=== PATIENT | male | born 1965 | race Caucasian/White ===

== ENCOUNTER 2024-08-13 14:13 | Emergency (ER) | payer OTHER ==
[2024-08-13] MEDS ORDERED: methylPREDNISolone Sod Succ/PF 125 MG/2 ML VIAL ONE (14:49)
[2024-08-13 15:09] LABS: #Basophils Less than 0.03 10x3/uL (0.0-0.2); #Eosinophils 0.43 10x3/uL (0.0-0.5); #Monocytes 0.58 10x3/uL (0.0-1.1); #Neutrophils 1.92 10x3/uL (1.5-8.4); %Basophils 0.5 % (0.0-2.0); %Eosinophils 11.5 % (0.0-6.0); %Lymphocytes 21.3 % (18.0-47.0); %Monocytes 15.5 % (0.0-10.0); %Neutrophils 51.2 % (40.0-75.0); Hematocrit 44.7 % (38.8-50.0); Hemoglobin 14.5 g/dL (13.5-17.5); Mean Corpuscular HGB CONC 32.4 g/dL (32.0-36.0); Mean Corpuscular Hemoglobin 30.1 pg (27.0-33.0); Mean Corpuscular Volume 92.9 fL (81.2-95.1); Mean Platelet Volume 10.8 fL (7.4-10.4); Platelet Count 237 10x3/uL (150-450); RBC Distribution Width 12.2 % (11.5-14.5); Red Blood Cell (RBC) Count 4.81 10x6/uL (4.32-5.72); White Blood Cell (WBC) Count 3.75 10x3/uL (3.5-10.5)
[2024-08-13 15:18] LABS: Anion Gap 13 mmol/L (10-20); BUN (Urea Nitrogen) 18 mg/dL (8.4-25.7); Calc. Creatinine Clearance 0 mL/min (70-130); Calcium 8.7 mg/dL (7.8-10.44); Carbon Dioxide 23 mmol/L (22-29); Chloride 109 mmol/L (98-107); Estimated GFR 77; Glucose 97 mg/dL (70-105); Potassium 4.1 mmol/L (3.5-5.1); Sodium 141 mmol/L (136-145)
[2024-08-13 15:23] LABS: Troponin I Less than 0.010 ng/mL (< 0.028)
[2024-08-13] MEDS ORDERED: Ipratropium/Albuterol 3 ML NEB ONE ×2 (15:49→16:49)
== END 2024-08-13 17:28 | disposition home or self-care (01) ==
LOC: CSHERS 14:13
DX: J20.9 Acute bronchitis, unspecified (principal); I10 Essential (primary) hypertension
CPT/HCPCS: 71045; 80048; 83880; 84484; 85025; 87428; 93005; 96374; J2919; J7620

== ENCOUNTER 2024-09-02 17:00 | Emergency (ER) | payer OTHER ==
[2024-09-02] MEDS ORDERED: Acetaminophen 500 MG TAB ONE (19:11)
[2024-09-02] MEDS ORDERED: predniSONE 20 MG TAB ONE (19:11)
[2024-09-02] MEDS ORDERED: Ipratropium/Albuterol 3 ML NEB ONE (19:24)
[2024-09-02 19:40] LABS: #Basophils 0.03 10x3/uL (0.0-0.2); #Eosinophils 0.25 10x3/uL (0.0-0.5); #Neutrophils 8.96 10x3/uL (1.5-8.4); %Basophils 0.2 % (0.0-2.0); %Eosinophils 2.1 % (0.0-6.0); %Lymphocytes 12.7 % (18.0-47.0); %Neutrophils 74.6 % (40.0-75.0); Hematocrit 42.5 % (38.8-50.0); Hemoglobin 14.1 g/dL (13.5-17.5); Mean Corpuscular HGB CONC 33.2 g/dL (32.0-36.0); Mean Corpuscular Hemoglobin 29.7 pg (27.0-33.0); Mean Corpuscular Volume 89.5 fL (81.2-95.1); Mean Platelet Volume 10.8 fL (7.4-10.4); Platelet Count 311 10x3/uL (150-450); RBC Distribution Width 11.8 % (11.5-14.5); Red Blood Cell (RBC) Count 4.75 10x6/uL (4.32-5.72); White Blood Cell (WBC) Count 12.02 10x3/uL (3.5-10.5)
[2024-09-02 19:53] LABS: Anion Gap 14 mmol/L (10-20); BUN (Urea Nitrogen) 9 mg/dL (8.4-25.7); Calc. Creatinine Clearance 0 mL/min (70-130); Calcium 8.6 mg/dL (7.8-10.44); Carbon Dioxide 23 mmol/L (22-29); Chloride 105 mmol/L (98-107); Estimated GFR 103; Glucose 100 mg/dL (70-105); Sodium 138 mmol/L (136-145)
[2024-09-02 19:58] LABS: Troponin I Less than 0.010 ng/mL (< 0.028)
== END 2024-09-02 21:28 | disposition home or self-care (01) ==
LOC: CSHERS 17:00
DX: J01.90 Acute sinusitis, unspecified (principal); I10 Essential (primary) hypertension
CPT/HCPCS: 36415; 71045; 80048; 84484; 85025; 87428; 93005; 94640; J7512; J7620